=== PATIENT | male | born 1945 | race Caucasian/White ===

== ENCOUNTER 2017-07-31 10:05 | Inpatient (IN) | payer MEDICARE, OTHER ==
[~2017-07-31] VITALS: Ht 182.9 cm; Wt 85.3 kg
[~2017-07-31 10:05] MED LIST: ASPI-630 PO; ATOR20TA PO; CITA20TA5 PO; DONE10TA61 PO; DONE5TAB56 PO; FURO-68 PO; HYDR25TA9 PO; LISI-334 PO; MEMA5TAB PO; METO25TA4 PO; METO50TA6 PO; MULT-245 PO
--- NOTE | 2017-07-31 10:41 | RAD ---
INDICATION: ALOC COMPARISON: 05/20/2016 FINDINGS: Single view of chest obtained. Poststernotomy changes with prominence of cardiac silhouette. Apparent blunting of the left costophrenic angle. No definite focal airspace consolidation or edema. IMPRESSION: No definite focal airspace consolidation. There is again some blunting of the left costophrenic angle. This could be a chronic finding with some focal fat along the pleura in this region when comparing to prior CT of the chest.
[2017-07-31 10:42] LABS: BASO # 0.1 x10^3/uL (0.0-0.2); BASO % 1 % (0-3); EOS # 0.2 x10^3/uL (0.0-0.7); EOS % 2 % (0-3); HEMATOCRIT 38.6 % (39.0-53.0); HEMOGLOBIN 12.9 g/dL (13.0-17.5); LYMPH # 1.6 x10^3/uL (1.0-4.8); LYMPH % 18 % (24-48); MEAN CORPUSCULAR HEMOGLOBIN 31 pg (25-35); MEAN CORPUSCULAR HGB CONC 34 g/dL (31-37); MEAN CORPUSCULAR VOLUME 91 fL (79-100); MONO # 0.8 x10^3/uL (0.0-1.1); MONO % 9 % (0-9); NEUT # 6.6 x10^3uL (1.8-7.7); NEUT % 71 % (31-73); PLATELET COUNT 176 x10^3/uL (140-400); RED BLOOD COUNT 4.23 x10^6/uL (4.30-5.70); RED CELL DISTRIBUTION WIDTH 14.1 % (11.5-14.5); WHITE BLOOD COUNT 9.3 x10^3/uL (4.0-11.0)
--- NOTE | 2017-07-31 10:59 | EKG ---
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
[2017-07-31] MEDS ORDERED: IV NORMAL SALINE 1,000ML 1,000 ML IV ONE (11:00)
[2017-07-31 11:01] LABS: ALBUMIN 2.8 g/dL (3.4-5.0); ALBUMIN/GLOBULIN RATIO 0.8 (1.0-1.7); CALCIUM 8.9 mg/dL (8.5-10.1); CREATININE 0.9 mg/dL (0.7-1.3); GFR 82.9; POTASSIUM 3.8 mmol/L (3.5-5.1); TOTAL BILIRUBIN 0.6 mg/dL (0.2-1.0); TOTAL PROTEIN 6.2 g/dL (6.4-8.2)
[2017-07-31] MEDS ORDERED: cefTRIAXone IV Push 1 GM VIAL. IVP ONE (11:15)
--- NOTE | 2017-07-31 11:29 | RAD ---
INDICATION: ALOC COMPARISON: 05/20/2016 TECHNIQUE: Axial CT images obtained through the head and cervical spine without intravenous contrast. FINDINGS: Head: No intracranial hemorrhage. No midline shift. Basal cisterns patents. Ventricles and sulci are globally prominent. Jerome white differentiation is maintained without evidence of acute ischemia to large vessel territory. No acute osseous abnormality. Orbits and paranasal sinuses unremarkable. Scattered foci of low attenuation within the white matter. Cervical spine: Degenerative changes throughout the cervical spine with osteophyte formation as well as uncovertebral hypertrophy. Mild retrolisthesis of C5 on C6. No definite acute fracture or dislocation. Subcentimeter sclerotic focus C2 vertebral body. Most commonly bone island unless the patient has history of neoplasm. IMPRESSION: 1. No acute intracranial hemorrhage. 2. Scattered regions of low attenuation within the white matter. Non-specific in nature but frequently secondary to chronic small vessel ischemic disease. If there is clinical concern for acute etiology MRI could better assess for acuity. 3. Prominence of ventricles and sulci which is frequently secondary to age related volume loss. 4. Degenerative changes of cervical spine without definite acute fracture or dislocation. PQRS Compliance Statement: One or more of the following individualized dose reduction techniques were utilized for this examination: 1. Automated exposure control 2. Adjustment of the mA and/or kV according to patient size 3. Use of iterative reconstruction technique
[2017-07-31] MEDS ORDERED: TETANUS AND DIPHTHERIA TOX/PF 0.5 ML VIAL. VAX IM ONE (11:30)
--- NOTE | 2017-07-31 11:58 | PHYS DOC ---
Past History Past Medical History: Dementia, High Cholesterol, Heart Disease Past Surgical History: Other Alcohol Use: None Drug Use: None Adult General Chief Complaint Chief Complaint: HYPOTENSION HPI HPI 72-year-old male patient brought in by EMS because of syncope. Patient was found on the floor of kitchen by his and son without seizure activity. Patient's son states he was unresponsive for couple minutes and was confused for several minutes and not acting like his normal now. Family member states he did not have appetite this morning. Patient complaining of diarrhea but unable to tell how many times he had diarrhea. Patient has history of dementia and denies any problem at this time except for diarrhea. Patient had loose stool in his pants at arrival to ER. EMS reported that has blood pressure of 70s over 40s and heart rate of 20s with a standing up and sitting up position that improved with supine position. Patient did not have hypotension on arrival to ER and his heart rate was high 40s. Review of Systems Review of Systems Constitutional: Denies fever or chills [] Eyes: Denies change in visual acuity, redness, or eye pain [] HENT: Denies nasal congestion or sore throat [] Respiratory: Denies cough or shortness of breath [] Cardiovascular: No additional information not addressed in HPI [] GI: Denies abdominal pain, nausea, vomiting, reports diarrhea [] : Denies dysuria or hematuria [] Musculoskeletal: Denies back pain or joint pain [] Integument: Denies rash or skin lesions [] Neurologic: Denies headache, focal weakness or sensory changes [] Endocrine: Denies polyuria or polydipsia [] All other systems were reviewed and found to be within normal limits, except as documented in this note. Current Medications Current Medications Current Medications Medications (Trade) Dose Ordered Sig/Bam Start Time Stop Time Status Last Admin Dose Admin Ceftriaxone Sodium 1 gm/ Sodium Chloride 50 ml @ 100 mls/hr 1X ONCE 07/31/17 11:00 07/31/17 11:29 UNV Ceftriaxone Sodium (Rocephin) 1 gm 1X ONCE 07/31/17 11:15 07/31/17 11:16 DC Sodium Chloride 1,000 ml @ 1,000 mls/hr 1X ONCE 07/31/17 11:00 07/31/17 11:59 Tetanus/ Diphtheria Toxoids Adsorbed (Tenivac Vial) 0.5 ml ONCE ONCE 07/31/17 11:30 1/5/18 11:31 DC Allergies Allergies Allergies Coded Allergies Type Severity Reaction Last Updated Verified meperidine Allergy Unknown 07/31/17 Yes propoxyphene Allergy Unknown 02/26/16 Yes Physical Exam Physical Exam Constitutional: Mild distress, non-toxic appearance, afebrile. [] HENT: Normocephalic, atraumatic, bilateral external ears normal, oropharynx moist, no oral exudates, nose normal. [] Eyes: PERRLA, EOMI, conjunctiva normal, no discharge. [] Neck: Normal range of motion, no tenderness, supple, no stridor. [] Cardiovascular:Heart rate regular rhythm, no murmur [] Lungs & Thorax: Bilateral breath sounds clear to auscultation [] Abdomen: Bowel sounds normal, soft, no tenderness, no masses, no pulsatile masses. [] Skin: Warm, dry, no erythema, no rash. [] Back: No tenderness, no CVA tenderness. [] Extremities: No tenderness, no cyanosis, no clubbing, ROM intact, no edema, Right elbow skin tear, left forearm small abrasion. [] Neurologic: Alert and oriented X 2, normal motor function, normal sensory function, no focal deficits noted, mildly confused. [] Psychologic: Affect normal, judgement normal, mood normal. [] Current Patient Data Vital Signs Vital Signs Date Time Temp Pulse Resp B/P (MAP) Pulse Ox O2 Delivery O2 Flow Rate FiO2 07/31/17 10:05 97.7 48 16 95 Room Air Lab Results Laboratory Tests Test 07/31/17 10:20 White Blood Count 9.3 x10^3/uL (4.0-11.0) Red Blood Count 4.23 x10^6/uL (4.30-5.70) L Hemoglobin 12.9 g/dL (13.0-17.5) L Hematocrit 38.6 % (39.0-53.0) L Mean Corpuscular Volume 91 fL (79-100) Mean Corpuscular Hemoglobin 31 pg (25-35) Mean Corpuscular Hemoglobin Concent 34 g/dL (31-37) Red Cell Distribution Width 14.1 % (11.5-14.5) Platelet Count 176 x10^3/uL (140-400) Neutrophils (%) (Auto) 71 % (31-73) Lymphocytes (%) (Auto) 18 % (24-48) L Monocytes (%) (Auto) 9 % (0-9) Eosinophils (%) (Auto) 2 % (0-3) Basophils (%) (Auto) 1 % (0-3) Neutrophils # (Auto) 6.6 x10^3uL (1.8-7.7) Lymphocytes # (Auto) 1.6 x10^3/uL (1.0-4.8) Monocytes # (Auto) 0.8 x10^3/uL (0.0-1.1) Eosinophils # (Auto) 0.2 x10^3/uL (0.0-0.7) Basophils # (Auto) 0.1 x10^3/uL (0.0-0.2) Prothrombin Time 10.8 SEC (9.4-11.4) Prothrombin Time INR 1.1 (0.9-1.1) PTT 24 SEC (23-33) Sodium Level 147 mmol/L (136-145) H Potassium Level 3.8 mmol/L (3.5-5.1) Chloride Level 110 mmol/L (98-107) H Carbon Dioxide Level 29 mmol/L (21-32) Anion Gap 8 (6-14) Blood Urea Nitrogen 18 mg/dL (8-26) Creatinine 0.9 mg/dL (0.7-1.3) Estimated GFR (Cockcroft-Gault) 82.9 BUN/Creatinine Ratio 20 (6-20) Glucose Level 103 mg/dL (70-99) H Lactic Acid Level 2.5 mmol/L (0.4-2.0) H Calcium Level 8.9 mg/dL (8.5-10.1) Magnesium Level 2.0 mg/dL (1.8-2.4) Total Bilirubin 0.6 mg/dL (0.2-1.0) Aspartate Amino Transferase (AST) 15 U/L (15-37) Alanine Aminotransferase (ALT) 23 U/L (16-63) Alkaline Phosphatase 113 U/L (46-116) Creatine Kinase 99 U/L (39-308) Creatine Kinase MB (Mass) 2.9 ng/mL (0.0-3.6) Creatine Kinase MB Relative Index 2.9 % (0-4) Troponin I Quantitative 0.030 ng/mL (0-0.055) JP-Sfm-R-Type Natriuretic Peptide 488 pg/mL (0-124) H Total Protein 6.2 g/dL (6.4-8.2) L Albumin 2.8 g/dL (3.4-5.0) L Albumin/Globulin Ratio 0.8 (1.0-1.7) L EKG EKG EKG at 1017 showed sinus bradycardia at rate of 49, left axis deviation, left atrial abnormality, left bundle branch block, poor R-wave progress in anterior leads, PTT EKG at 1117 showed sinus bradycardia at rate of 51, left axis deviation, nonspecific intraventricular block, Q wave in anterior leads[] Radiology/Procedures Radiology/Procedures CT of head and chest x-ray did not show acute problem Course & Med Decision Making Course & Med Decision Making Pertinent Labs and Imaging studies reviewed. (See chart for details) Evaluation of patient in ER showed 72-year-old male patient brought by EMS from his home because of the fall after syncopal episode. Patient did not remember the event. Patient had hypotension and bradycardia EMS arrival that gradually improved and did not have hypotension in ER and his bradycardia improved with IV fluid. Patient had few episodes of diarrhea and looked he had a vasovagal syncopal episode and fall. Labs and ct of head did not show acute finding. Plan to admit for observation. Dr Molina accepted admission at 1152. Dragon Disclaimer Dragon Disclaimer This electronic medical record was generated, in whole or in part, using a voice recognition dictation system. Departure Departure: Impression: Primary Impression: Syncope and collapse Additional Impressions: Fall at home Abrasion of upper extremity Bradycardia Diarrhea Dementia Disposition: 09 ADMITTED INPATIENT (At 1152) Admitting Physician: Keven Molina Condition: IMPROVED Referrals: KEVEN MOLINA MD (PCP) Problem Qualifiers RIP QUACH MD Jul 31, 2017 11:58
[2017-07-31 14:45] VITALS: BP 158/81
[2017-07-31] MEDS ORDERED: IV NORMAL SALINE 1,000ML 1,000 ML IV SCH (18:30)
[2017-07-31 19:51] VITALS: BP 157/93
[2017-07-31] MEDS ORDERED: LISI-334 PO (20:16)
[2017-07-31] MEDS ORDERED: DONEPEZIL HCL 10 MG TABLET PO SCH (21:00)
[2017-07-31] MEDS ORDERED: METOPROLOL TART IMMED RELEASE 25 MG TABLET PO SCH (21:00)
[2017-07-31 21:29] LABS: BILIRUBIN,URINE NEG (NEG); CLARITY,URINE CLEAR; COLOR,URINE YELLOW; GLUCOSE,URINE NEG (NEG)
[2017-07-31 21:30] LABS: NITRITE,URINE NEG (NEG); UROBILINOGEN,URINE 1 mg/dL (0.2 mg/dL)
[2017-07-31 21:31] LABS: BACTERIA,URINE 0 /HPF (0-FEW); SQUAMOUS EPITHELIAL CELL,UR FEW /LPF; WBC,URINE OCC /HPF (0-4)
[2017-07-31 21:36] LABS: HYALINE CASTS, URINE FEW /HPF
[2017-07-31 23:37] VITALS: BP 142/82
[2017-08-01 05:37] VITALS: BP 167/84
[2017-08-01] MEDS ORDERED: HEPARIN PF for SUB-Q USE 5,000 UNIT/0.5 ML VIAL. SQ SCH (06:00)
[2017-08-01] MEDS ORDERED: IOHEXOL 300 MG/ML 75 ML VIAL. IV ONE (07:15)
[2017-08-01] MEDS ORDERED: CONTRAST GIVEN MC PRN (07:15)
[2017-08-01 08:24] LABS: BASO % 1 % (0-3); EOS # 0.1 x10^3/uL (0.0-0.7); EOS % 2 % (0-3); HEMATOCRIT 40.4 % (39.0-53.0); HEMOGLOBIN 13.5 g/dL (13.0-17.5); LYMPH # 1.3 x10^3/uL (1.0-4.8); LYMPH % 18 % (24-48); MEAN CORPUSCULAR HEMOGLOBIN 31 pg (25-35); MEAN CORPUSCULAR HGB CONC 33 g/dL (31-37); MEAN CORPUSCULAR VOLUME 92 fL (79-100); MONO # 0.5 x10^3/uL (0.0-1.1); MONO % 7 % (0-9); NEUT # 5.5 x10^3uL (1.8-7.7); NEUT % 73 % (31-73); PLATELET COUNT 171 x10^3/uL (140-400); RED BLOOD COUNT 4.41 x10^6/uL (4.30-5.70); RED CELL DISTRIBUTION WIDTH 14.2 % (11.5-14.5); WHITE BLOOD COUNT 7.6 x10^3/uL (4.0-11.0)
[2017-08-01 08:26] LABS: CALCIUM 8.6 mg/dL (8.5-10.1); CREATININE 0.8 mg/dL (0.7-1.3); POTASSIUM 3.4 mmol/L (3.5-5.1)
[2017-08-01 08:52] VITALS: BP 162/89
[2017-08-01 08:53] VITALS: BP_SYST 153; BP_SYST 155; BP_DIAS 77; BP_DIAS 95
[2017-08-01] MEDS ORDERED: MEMANTINE 5 MG TABLET. PO SCH (09:00)
[2017-08-01] MEDS ORDERED: CITALOPRAM 20 MG TABLET. PO SCH ×2 (09:00)
[2017-08-01] MEDS ORDERED: ATORVASTATIN CALCIUM 20 MG TABLET PO SCH (09:00)
[2017-08-01] MEDS ORDERED: ASPIRIN 81 MG TAB.CHEW PO SCH (09:00)
[2017-08-01] MEDS ORDERED: MEMANTINE 10 MG TABLET. PO SCH (09:00)
[2017-08-01] MEDS ORDERED: PNEUMOC CONJ VACC 23-VALENT 0.5 ML VIAL. VAX IM ONE (09:00)
--- NOTE | 2017-08-01 10:15 | RAD ---
CT chest with contrast: Clinical history: Elevated d-dimer and syncope. Axial helical images of the chest were obtained after the administration of 75 cc of Omni 300 and timed appropriately for a pulmonary arterial study. Multiplanar reconstruction was performed on a work station for a CT pulmonary angiogram of the chest with contrast. Comparison: May 20, 2016 There are no filling defects to suggest pulmonary embolism. The ascending thoracic aorta is mildly dilated measuring 4.6 cm in diameter. There are median sternotomy wires. Linear opacities in the lung bases are likely discoid atelectasis. There is no mediastinal or hilar lymphadenopathy. Impression: 1. No evidence of pulmonary embolism. 2. Mildly dilated ascending thoracic aorta is stable. 3. No acute findings.
[2017-08-01 10:38] VITALS: BP 153/77
[2017-08-01 10:50] VITALS: BP 146/81
--- NOTE | 2017-08-01 11:35 | HP ---
ADMIT DATE: 07/31/2017 HISTORY OF PRESENT ILLNESS: The patient brought to the Emergency Room yesterday, ____ by his without seizure activity, no loss of stool or whatever the patient has severe dementia but apparently was confused for several minutes, not acting like his normal self. He only remembered that he had no appetite on the morning of admission and was complaining also of some diarrhea. However, the patient has difficulty communicating whether he does have severe dementia, Alzheimer's. The patient's heart rate was noted to be in the 40s. He was admitted for syncope. Further evaluation is indicated. PAST MEDICAL HISTORY: Includes that of dementia, valvular replacement aortic valve in 2002, hypercholesterolemia, joint replacement, left knee replacement, influenza vaccine. FAMILY HISTORY: Cardiovascular disease, cancer disease in the parents, otherwise unremarkable. ALLERGIES: MEPERIDINE and DARVOCET ____. SOCIAL HISTORY: The patient unable to give any history, but no history of smoking, alcohol or drug use. HOME MEDICATIONS: Aspirin, Celexa 40, lisinopril 20, Namenda 10, metoprolol 12.5 b.i.d., multivitamin daily. REVIEW OF SYSTEMS: As noted, unable to get any history from the patient as he is pretty much has severe dementia, Alzheimer's and he does not answer or answers yes to everything. PHYSICAL EXAMINATION: VITAL SIGNS: Blood pressure 155/95 in this white male, morbidly obese. Respiratory rate 16, pulse 70, afebrile. Initially, his pulse was as noted 48. HEENT: The patient's head was atraumatic and normocephalic. EYES: PERRLA without jaundice. Mouth and throat: Poor dentition. NECK: Supple, without JVD, carotid bruit or thyromegaly. LUNGS: Diminished throughout. Poor movement of air. CARDIOVASCULAR: Regular sinus rhythm. S1 and S2 without murmur, rub, thrill, or extra heart sounds. ABDOMEN: Soft, protuberant, nontender. No rebound or guarding. Positive bowel sounds. No hepatosplenomegaly was noted. EXTREMITIES: No clubbing, cyanosis, or edema. NEUROLOGIC: The patient alert, but as noted unable to answer any questions. LABORATORY DATA: Potassium slightly low 3.4. Lactic acid was elevated, although it has come down in normal range. He did have a D-dimer 1.76. CTA pending for further evaluation there. IMPRESSION: Otherwise, syncope, bradycardia, change in mental status, hypokalemia, elevated D-dimer, Alzheimer's disease, morbid obesity. PLAN: Continue to monitor carefully, make further evaluation once further results are brought back of the CTA. VENICE JONES MD DR: DAISY/ralph JOB#: [id number] / [id number]
[2017-08-01] MEDS ORDERED: QUIN40TA PO (14:02)
== END 2017-08-01 13:52 | disposition home or self-care (01) | DRG 308 ==
LOC: ER 10:05 → 1 SOUTH 11:55 → OBSVTOIN 20:28
PROVIDERS: ADMIT Family Medicine; ATTEND Family Medicine
DX: R00.1 Bradycardia, unspecified (principal); G93.41 Metabolic encephalopathy; E44.0 Moderate protein-calorie malnutrition; G30.9 Alzheimer's disease, unspecified; F02.80 Dementia in other diseases classified elsewhere, unspecified severity, without behavioral disturbance, psychotic disturbance, mood disturbance, and anxiety; Z95.2 Presence of prosthetic heart valve; E66.01 Morbid (severe) obesity due to excess calories; R19.7 Diarrhea, unspecified; W18.39XA Other fall on same level, initial encounter; E87.6 Hypokalemia; Z68.25 Body mass index [BMI] 25.0-25.9, adult; E78.00 Pure hypercholesterolemia, unspecified; S50.812A Abrasion of left forearm, initial encounter; Z96.652 Presence of left artificial knee joint; R79.1 Abnormal coagulation profile; Z82.49 Family history of ischemic heart disease and other diseases of the circulatory system; Z88.8 Allergy status to other drugs, medicaments and biological substances; Z80.9 Family history of malignant neoplasm, unspecified; Y93.89 Activity, other specified; Y92.099 Unspecified place in other non-institutional residence as the place of occurrence of the external cause
CPT/HCPCS: 36415; 70450; 71045; 71275; 72125; 80048; 80053; 81001; 82553; 82607; 83605; 83735; 83880; 84443; 84484; 85025; 85379; 85610; 85730; 87040; 90471; 90714; 90732; 93005; 96361; 96374; G0378; G0379; J0696; Q9967; 99285-25; J7030

== ENCOUNTER 2017-11-12 17:55 | Observation (INO) | payer OTHER ==
[~2017-11-12] VITALS: Ht 175.3 cm; Wt 85.3 kg
[~2017-11-12 17:55] MED LIST changes: +QUIN40TA PO
--- NOTE | 2017-11-12 18:13 | PHYS DOC ---
Past History Past Medical History: Dementia, High Cholesterol, Heart Disease Past Surgical History: Other Alcohol Use: None Drug Use: None Adult General HPI HPI 72-year-old male with a history of high blood pressure high cholesterol known coronary artery disease with a prior coronary artery bypass graft and recently evolving some mild diabetes which is diet controlled currently. Over the past year or more patient has evolved her significant dementia per . They were at [facility] today and he became less responsive than his typical for him. She helped him sit down and then EMS was called. There was a suspicion that his blood glucose could be low so he was given some applesauce and some other food, when EMS arrived his glucose was around the 100. Patient has not been sick recently as a has no specific complaints no headache no cough no chest pain or shortness of breath. Denies abdominal pain. Normal bowel bladder habits. confirms this history and review of systems Review of Systems Review of Systems Constitutional: Denies fever or chills [] Eyes: Denies change in visual acuity, redness, or eye pain [] HENT: Denies nasal congestion or sore throat [] Respiratory: Denies cough or shortness of breath [] Cardiovascular: No additional information not addressed in HPI [] GI: Denies abdominal pain, nausea, vomiting, bloody stools or diarrhea [] : Denies dysuria or hematuria [] Musculoskeletal: Denies back pain or joint pain [] Integument: Denies rash or skin lesions [] Neurologic: Denies headache, focal weakness or sensory changes [] Endocrine: Denies polyuria or polydipsia [] All other systems were reviewed and found to be within normal limits, except as documented in this note. Current Medications Current Medications Current Medications Medications (Trade) Dose Ordered Sig/Bam Start Time Stop Time Status Last Admin Dose Admin Dextrose/Sodium Chloride 1,000 ml @ 150 mls/hr 1X ONCE 11/12/17 18:15 11/13/17 00:54 Allergies Allergies Allergies Coded Allergies Type Severity Reaction Last Updated Verified meperidine Allergy Unknown 07/31/17 Yes propoxyphene Allergy Unknown 02/26/16 Yes Physical Exam Physical Exam Chronically weak appearing 72-year-old male with a very slow speech and disorientation consistent with his advanced dementia and unchanged from his recent baseline per . Mucous membranes are mildly dry. Pupils are reactive bilaterally. Supple neck clear lungs regular rate and rhythm without tachycardia. Benign abdomen with no focal tenderness no mass or megaly no CVA tenderness. Normal extremities. Patient has significant generalized weakness 4 minus out of 5 but there is no asymmetry or focal deficits Constitutional: no acute distress, non-toxic appearance. [] HENT: Normocephalic, atraumatic, bilateral external ears normal, oropharynx mildly dry, no oral exudates, nose normal. [] Eyes: PERRLA, EOMI, conjunctiva normal, no discharge. [] Neck: Normal range of motion, no tenderness, supple, no stridor. [] Cardiovascular:Heart rate regular rhythm, no murmur [] Lungs & Thorax: Bilateral breath sounds clear to auscultation [] Abdomen: Bowel sounds normal, soft, no tenderness, no masses, no pulsatile masses. [] Skin: Warm, dry, no erythema, no rash. [] Back: No tenderness, no CVA tenderness. [] Extremities: No tenderness, no cyanosis, no clubbing, ROM intact, no edema. [] Neurologic: Alert and oriented 2 not to date, normal motor function except significant generalized weakness as above., normal sensory function, no focal deficits noted. [] Psychologic: Patient with very flat affect which is why says is his chronic baseline. EKG EKG Normal sinus rhythm at 68 left axis deviation and nonspecific intraventricular block with long QRS. Nonspecific ST and T-wave findings no STEMI interpreted by me[] Radiology/Procedures Radiology/Procedures [] Course & Med Decision Making Course & Med Decision Making Pertinent Labs and Imaging studies reviewed. (See chart for details) Signs and symptoms consistent with near syncope in this elderly gentleman with advanced dementia. Clinically he appears mildly dehydrated. Nonfocal neurologic exam with significant generalized weakness. Full workup pending. Anticipate telemetry admission for further evaluation of near syncope with monitoring to rule out arrhythmia. [] Dragon Disclaimer Dragon Disclaimer This electronic medical record was generated, in whole or in part, using a voice recognition dictation system. Departure Departure: Impression: Primary Impression: Near syncope Additional Impressions: Dehydration Generalized weakness Hypoglycemia Disposition: ADMITTED INPATIENT Admitting Physician: Keven Molina Condition: IMPROVED Referrals: KEVEN MOLINA MD (PCP) Problem Qualifiers JYOTSNA COVINGTON MD Nov 12, 2017 18:13
[2017-11-12] MEDS ORDERED: IV DEXTROSE 5% - 0.9 % NACL 1,000 ML IV ONE (18:15)
[2017-11-12] MEDS ORDERED: IV DEXTROSE 5% - 0.9 % NACL 500 ML IV ONE ×2 (18:15→19:00)
--- NOTE | 2017-11-12 18:20 | EKG ---
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1945 Requested By: JYOTSNA COVINGTON Order Number: [id number] Reading MD: Measurements Intervals [place] Rate: 68 P: -154 MD: 104 QRS: -54 QRSD: 178 T: 133 QT: 478 QTc: 509 Interpretive Statements SINUS RHYTHM ABNORMAL LEFT AXIS DEVIATION NON SPECIFIC INTRAVENTRICULAR BLOCK QRS(T) CONTOUR ABNORMALITY CONSISTENT WITH ANTEROSEPTAL INFARCT POSSIBLY RECENT ABNORMAL ECG RI6.01 Compared to ECG 07/31/2017 10:11:37 Left-axis deviation now present Myocardial infarct finding now present Sinus bradycardia no longer present Left bundle-branch block no longer present Poor R-wave progression no longer present
[2017-11-12] MEDS ORDERED: IV NORMAL SALINE 1,000ML 1,000 ML IV ONE (19:00)
[2017-11-12 19:06] LABS: BASO % 1 % (0-3); EOS # 0.2 x10^3/uL (0.0-0.7); EOS % 4 % (0-3); HEMATOCRIT 39.8 % (39.0-53.0); HEMOGLOBIN 13.3 g/dL (13.0-17.5); LYMPH # 1.3 x10^3/uL (1.0-4.8); LYMPH % 27 % (24-48); MEAN CORPUSCULAR HEMOGLOBIN 31 pg (25-35); MEAN CORPUSCULAR HGB CONC 34 g/dL (31-37); MEAN CORPUSCULAR VOLUME 92 fL (79-100); MONO # 0.3 x10^3/uL (0.0-1.1); MONO % 7 % (0-9); NEUT % 62 % (31-73); PLATELET COUNT 149 x10^3/uL (140-400); RED BLOOD COUNT 4.32 x10^6/uL (4.30-5.70); RED CELL DISTRIBUTION WIDTH 14.1 % (11.5-14.5); WHITE BLOOD COUNT 4.8 x10^3/uL (4.0-11.0)
[2017-11-12 19:21] LABS: ALBUMIN 2.9 g/dL (3.4-5.0); ALBUMIN/GLOBULIN RATIO 0.8 (1.0-1.7); CALCIUM 9.2 mg/dL (8.5-10.1); CREATININE 0.9 mg/dL (0.7-1.3); GFR 82.9; POTASSIUM 3.3 mmol/L (3.5-5.1); TOTAL BILIRUBIN 0.3 mg/dL (0.2-1.0); TOTAL PROTEIN 6.4 g/dL (6.4-8.2)
[2017-11-12] MEDS ORDERED: ONDANSETRON PF 4 MG/2 ML VIAL. IV PRN (21:45)
[2017-11-12] MEDS ORDERED: LISI-334 PO (21:50)
[2017-11-12 22:41] VITALS: BP 159/79
[2017-11-12] MEDS: IV NORMAL SALINE 1,000ML 1,000 ML IV SCH (23:10)
[2017-11-12 23:11] LABS: BACTERIA,URINE 0 /HPF (0-FEW); BILIRUBIN,URINE NEG (NEG); CLARITY,URINE CLEAR; COLOR,URINE YELLOW; GLUCOSE,URINE NEG (NEG); NITRITE,URINE NEG (NEG); RBC,URINE RARE /HPF (0-2); SQUAMOUS EPITHELIAL CELL,UR OCC /LPF; UROBILINOGEN,URINE 0.2 mg/dL (0.2 mg/dL); WBC,URINE RARE /HPF (0-4)
[2017-11-13] MEDS: IV NORMAL SALINE 1,000ML 1,000 ML IV SCH ×2 (05:47→13:45)
[2017-11-13 06:07] VITALS: BP 156/81
[2017-11-13 06:49] LABS: CALCIUM 8.5 mg/dL (8.5-10.1); CREATININE 0.8 mg/dL (0.7-1.3); POTASSIUM 3.3 mmol/L (3.5-5.1)
[2017-11-13 06:52] LABS: BASO % 1 % (0-3); EOS # 0.2 x10^3/uL (0.0-0.7); EOS % 3 % (0-3); HEMOGLOBIN 11.8 g/dL (13.0-17.5); LYMPH # 1.8 x10^3/uL (1.0-4.8); LYMPH % 30 % (24-48); MEAN CORPUSCULAR HEMOGLOBIN 31 pg (25-35); MEAN CORPUSCULAR HGB CONC 34 g/dL (31-37); MEAN CORPUSCULAR VOLUME 92 fL (79-100); MONO # 0.5 x10^3/uL (0.0-1.1); MONO % 9 % (0-9); NEUT # 3.5 x10^3uL (1.8-7.7); NEUT % 58 % (31-73); PLATELET COUNT 130 x10^3/uL (140-400); RED BLOOD COUNT 3.79 x10^6/uL (4.30-5.70); RED CELL DISTRIBUTION WIDTH 14.3 % (11.5-14.5); WHITE BLOOD COUNT 6.2 x10^3/uL (4.0-11.0)
[2017-11-13] MEDS ORDERED: POTASSIUM CHLORIDE 20 MEQ TABLET.ER. PO ONE (07:30)
[2017-11-13] MEDS ORDERED: LISINOPRIL 20 MG TABLET PO SCH (09:00)
[2017-11-13] MEDS ORDERED: CITALOPRAM 20 MG TABLET. PO SCH (09:00)
[2017-11-13] MEDS ORDERED: MEMANTINE 10 MG TABLET. PO SCH (09:00)
[2017-11-13] MEDS ORDERED: ASPIRIN 81 MG TAB.CHEW PO SCH (09:00)
--- NOTE | 2017-11-13 09:02 | RAD ---
History: Acute mental status change AP view the chest was obtained at 1839 hours. Comparison: July 31, 2017 Median sternotomy wires and artificial valve are again seen. The heart is borderline enlarged. The pulmonary vasculature is normal. There is blunting of the left costophrenic angle. Impression: Mild left effusion with adjacent infiltrate. Stable appearance the chest.
[2017-11-13 10:44] VITALS: BP 152/83
[2017-11-13] MEDS ORDERED: POTA8TAB PO (12:49)
[2017-11-13] MEDS ORDERED: LEVO500T59 PO (12:49)
[2017-11-13] MEDS ORDERED: levoFLOXacin 500 MG TABLET PO SCH (13:00)
--- NOTE | 2017-11-13 13:13 | HP ---
ADMIT DATE: 11/12/2017 HISTORY OF PRESENT ILLNESS: A 72-year-old gentleman with history of severe dementia, Alzheimer type, came in through the Emergency Room, brought in by family members. Apparently, he was at [facility] when he became unresponsive or very less responsive, had to be sat down quietly where EMS was brought in. The patient's blood sugar was found to be on the low side came back up into 100. The patient was admitted for evaluation and observation. The patient is a poor historian. The patient has marked limited gait, almost a parkinsonian type affect, probably follow up also with the maxillofacial surgeon. The patient also was noted to have mild left effusion with adjacent infiltrate, although they also note stable appearance that is somewhat concerning as well. The patient's labs show slightly low potassium and albumin decreased as well. The patient was admitted for further evaluation and treatment. PAST MEDICAL HISTORY: That of dementia, valve replacement, aortic valve in 2002, hypercholesterolemia, hypertension, joint replacement, left knee replacement, diabetes, depression, and influenza. Pneumococcal vaccines up to date 1166-2996 respectively. FAMILY HISTORY: Mother with heart disease. Father with some form of cancer. ALLERGIES: MEPERIDINE and PROPOXYPHENE, which is no longer available unfortunately. SOCIAL HISTORY: The patient denies smoking, alcohol, or drug use. The patient is a full code. REVIEW OF SYSTEMS: The patient really not able to give much of history and continues to be monitored carefully. PHYSICAL EXAMINATION: GENERAL: This is an elderly white male, looking older than stated age, very limited range of motion, very stiff. VITAL SIGNS: Blood pressure 142/87, respiratory rate 18, pulse 74, afebrile. HEENT: The patient's head was atraumatic, normocephalic. Eyes: PERRLA without jaundice. Mouth and throat: Poor dentition. NECK: Supple, without JVD, carotid bruit, or thyromegaly. LUNGS: Diminished. Poor movement of air. CARDIOVASCULAR: Regular sinus rhythm, S1, S2. ABDOMEN: Soft, nontender, protuberant. EXTREMITIES: No clubbing, cyanosis, nor edema. NEUROLOGIC: The patient was alert, but not able really to verbalize much at all. He has severe dementia with Alzheimer type. IMPRESSION AND PLAN: In any case, the patient was admitted for further evaluation including that of a near syncope, hypokalemia, possible pneumonitis, pleural effusion, dementia, Alzheimer type; hypertension, moderate to severe protein malnutrition. The patient will be admitted, placed on IV fluids. Further evaluation as indicated. VENICE JONES MD DR: DAISY/ralph JOB#: [id number] / [id number]
[2017-11-14] MEDS ORDERED: POTASSIUM CHLORIDE 8 MEQ TABLET.ER. PO SCH (08:00)
== END 2017-11-13 14:00 | disposition home health service (06) ==
LOC: ER 17:55 → INTOOBSV 21:30 → 1 SOUTH 21:30
PROVIDERS: ADMIT Family Medicine; ATTEND Family Medicine
DX: R55 Syncope and collapse (principal); E87.6 Hypokalemia; J90 Pleural effusion, not elsewhere classified; F03.90 Unspecified dementia, unspecified severity, without behavioral disturbance, psychotic disturbance, mood disturbance, and anxiety; I10 Essential (primary) hypertension; E11.649 Type 2 diabetes mellitus with hypoglycemia without coma; E78.00 Pure hypercholesterolemia, unspecified; I25.10 Atherosclerotic heart disease of native coronary artery without angina pectoris; Z82.49 Family history of ischemic heart disease and other diseases of the circulatory system; Z95.1 Presence of aortocoronary bypass graft
CPT/HCPCS: 36415; 71045; 80048; 80053; 81001; 82947; 84443; 84484; 85025; 93005; 96360; 96361; 97161; 97166; 99285; G0378; J7042; G0379; J7030

== ENCOUNTER 2018-01-18 10:53 | Inpatient (IN) | payer OTHER ==
[~2018-01-18] VITALS: Ht 172.7 cm; Wt 83.2 kg
[~2018-01-18 10:53] MED LIST changes: -CITA20TA5 PO; +CITA20TA6 PO; +LEVO500T59 PO; +POTA8TAB PO
[2018-01-18 14:03] VITALS: BP 145/88
[2018-01-18] MEDS ORDERED: DOXY100C14 PO (14:47)
[2018-01-18] MEDS ORDERED: KLOR CON PO (14:47)
[2018-01-18] MEDS ORDERED: ONDANSETRON PF 4 MG/2 ML VIAL. IV PRN (15:00)
[2018-01-18] MEDS ORDERED: ENOXAPARIN 40 MG/0.4 ML SYRINGE. SQ SCH (15:00)
[2018-01-18] MEDS ORDERED: VANCOMYCIN 2 GM in IV NORMAL SALINE 500ML 500 ML IV ONE (15:00)
[2018-01-18 15:07] LABS: BASO % 0 % (0-3); EOS # 0.1 x10^3/uL (0.0-0.7); EOS % 1 % (0-3); HEMATOCRIT 33.5 % (39.0-53.0); HEMOGLOBIN 11.2 g/dL (13.0-17.5); LYMPH # 1.2 x10^3/uL (1.0-4.8); LYMPH % 13 % (24-48); MEAN CORPUSCULAR HEMOGLOBIN 31 pg (25-35); MEAN CORPUSCULAR HGB CONC 34 g/dL (31-37); MEAN CORPUSCULAR VOLUME 91 fL (79-100); MONO % 10 % (0-9); NEUT # 7.3 x10^3uL (1.8-7.7); NEUT % 76 % (31-73); PLATELET COUNT 270 x10^3/uL (140-400); RED BLOOD COUNT 3.67 x10^6/uL (4.30-5.70); RED CELL DISTRIBUTION WIDTH 13.7 % (11.5-14.5); WHITE BLOOD COUNT 9.6 x10^3/uL (4.0-11.0)
[2018-01-18 15:08] LABS: ALBUMIN 2.1 g/dL (3.4-5.0); ALBUMIN/GLOBULIN RATIO 0.4 (1.0-1.7); CALCIUM 9.2 mg/dL (8.5-10.1); CREATININE 0.9 mg/dL (0.7-1.3); GFR 82.9; POTASSIUM 3.8 mmol/L (3.5-5.1); TOTAL BILIRUBIN 0.4 mg/dL (0.2-1.0); TOTAL PROTEIN 7.3 g/dL (6.4-8.2)
[2018-01-18] MEDS: VANCOMYCIN PER PHARMACY MC PRN (18:18)
[2018-01-18 21:14] VITALS: BP 129/80
[2018-01-18] MEDS: ENOXAPARIN 40 MG/0.4 ML SYRINGE. SQ SCH (21:22)
[2018-01-18 23:59] VITALS: BP 128/73
--- NOTE | 2018-01-19 00:53 | RAD ---
PORTABLE CHEST 1V Clinical History: [id number] Short of air, weakness Technique: AP view of the chest was obtained at 01/18/2018 9:13 PM. Comparison: November 12, 2017. Findings: The heart is mildly enlarged. Median sternotomy wires are again seen. The pulmonary vasculature is normal. There is blunting of the left costophrenic angle. Impression: Mild left effusion with adjacent infiltrate and mild cardiomegaly. Findings are likely secondary to mild CHF. Electronically signed by: David Vela III, MD (01/19/2018 12:50 AM) [facility]
[2018-01-19 03:08] VITALS: BP 125/67
[2018-01-19] MEDS: VANCOMYCIN 1.25 GM in IV NORMAL SALINE 250ML 250 ML IV SCH ×2 (03:51→16:19)
[2018-01-19 06:07] VITALS: BP 142/79
[2018-01-19 06:23] LABS: BASO % 1 % (0-3); EOS # 0.1 x10^3/uL (0.0-0.7); EOS % 2 % (0-3); HEMATOCRIT 29.2 % (39.0-53.0); HEMOGLOBIN 9.8 g/dL (13.0-17.5); LYMPH # 1.6 x10^3/uL (1.0-4.8); LYMPH % 18 % (24-48); MEAN CORPUSCULAR HEMOGLOBIN 30 pg (25-35); MEAN CORPUSCULAR HGB CONC 34 g/dL (31-37); MEAN CORPUSCULAR VOLUME 90 fL (79-100); MONO % 11 % (0-9); NEUT # 6.3 x10^3uL (1.8-7.7); NEUT % 70 % (31-73); PLATELET COUNT 247 x10^3/uL (140-400); RED BLOOD COUNT 3.23 x10^6/uL (4.30-5.70); RED CELL DISTRIBUTION WIDTH 13.4 % (11.5-14.5)
[2018-01-19 06:34] LABS: CALCIUM 8.8 mg/dL (8.5-10.1); CREATININE 0.8 mg/dL (0.7-1.3); POTASSIUM 3.7 mmol/L (3.5-5.1)
[2018-01-19 11:00] VITALS: BP 144/77
[2018-01-19] MEDS: CITALOPRAM 20 MG TABLET. PO SCH (11:02)
[2018-01-19] MEDS: LISINOPRIL 20 MG TABLET PO SCH (11:02)
[2018-01-19] MEDS: MEMANTINE 10 MG TABLET. PO SCH (11:02)
[2018-01-19] MEDS: MULTIVITAMIN with MINERAL TABLET. PO SCH (11:03)
[2018-01-19] MEDS: POTASSIUM CHLORIDE 8 MEQ TABLET.ER. PO SCH (11:03)
[2018-01-19] MEDS: ASPIRIN 81 MG TAB.CHEW PO SCH (11:03)
[2018-01-19] MEDS: ACETAMINOPHEN 500 MG TABLET PO PRN ×2 (11:05→20:55)
--- NOTE | 2018-01-19 14:02 | HP ---
ADMIT DATE: 01/18/2018 HISTORY OF PRESENT ILLNESS: This 72-year-old male came in from home, apparently recently been treated for an infection in his right foot and right lower leg. The patient otherwise has been not doing well on oral antibiotics. As a result of this, the patient was admitted to the hospital for IV antibiotic therapy and care there. He had a sed rate of greater than 115 and even though his white count was basically unremarkable, he did have a temperature of 99.5. The family noted the patient has severe Alzheimer type. Consequently, he is not in a good condition to give much of a history, most of the history obtained from his . The patient has not done well on oral antibiotics, was admitted to the hospital for further evaluation and treatment. PAST MEDICAL HISTORY: Dementia, Alzheimer type; valve replacement, aortic valve in 2002; hypercholesterolemia and hypertension; joint replacement, left knee replacement; diabetes, depression, influenza. Pneumococcal vaccine and flu vaccines are up-to-date. FAMILY HISTORY: Mother with heart disease. Father with cancer. ALLERGIES: MEPERIDINE AND DARVOCET. SOCIAL HISTORY: The patient denies smoking, alcohol or drug use. REVIEW OF SYSTEMS: The patient really not able to give much of any type of history at all, pretty much has a blank stare. He does have an infected right foot and right lower leg as noted above. HOME MEDICATIONS: He has aspirin 81, Celexa 20, lisinopril 20, Namenda 10 mg b.i.d., multivitamin and Klor-Con 8 mEq. REVIEW OF SYSTEMS: The patient otherwise review of systems is noted, unable to give any history. PHYSICAL EXAMINATION: GENERAL: This is a white male, well developed, well nourished, but very pretty much noncommunicating. VITAL SIGNS: Blood pressure 130/80, respiratory rate 20, pulse 80, temperature 99.5, oxygen saturation 92%. HEENT: The patient's head was atraumatic, normocephalic. Eyes: PERRLA without jaundice. Mouth and throat: Poor dentition. NECK: Supple, without JVD. NEUROLOGIC: The patient otherwise resting fairly comfortably, making fairly good progress over there. LUNGS: Diminished crackles in the bases. CARDIOVASCULAR: Regular sinus rhythm, S1, S2. ABDOMEN: Soft, protuberant, nontender. No rebound or guarding. Positive bowel sounds, no hepatosplenomegaly was noted. EXTREMITIES: No clubbing, cyanosis or edema except for the lower legs that do show +1 pitting edema. Marked erythema to the right big toe over the surface of the right foot and a partial to lower extremity of the right lower leg. Pulses noted distally. NEUROLOGIC: Baseline for him. He is alert, but was markedly confused, disoriented, not much in the way of speech. LABORATORY DATA: As noted. Sed rate was at 115. Otherwise, the CBC, chemistries were basically normal except for an elevated BNP of 4700. The patient's albumin low at 2.1. IMPRESSION: Cellulitis to the right lower leg, right foot as well as lymphangitis, elevated BNP for possible congestive heart failure, moderate to severe protein malnutrition. PLAN: Continue on IV vancomycin, IV Lasix and make further evaluation on him as indicated. VENICE JONES MD DR: DAISY/ralph JOB#: [id number] / [id number]
[2018-01-19] MEDS: FUROSEMIDE 20 MG/2 ML VIAL IVP SCH (16:19)
[2018-01-19 17:35] VITALS: BP 138/73
[2018-01-19 19:22] VITALS: BP 116/68
[2018-01-19] MEDS: LACTOBACILLUS RHAMNOSUS GG 1 CAPSULE. PO SCH (20:54)
[2018-01-19] MEDS: ENOXAPARIN 40 MG/0.4 ML SYRINGE. SQ SCH (20:55)
[2018-01-19] MEDS: DOXYCYCLINE HYCLATE 100 MG TABLET PO SCH (20:55)
[2018-01-19 23:00] VITALS: BP 125/72
[2018-01-20 04:00] LABS: CALCIUM 8.3 mg/dL (8.5-10.1); CREATININE 0.7 mg/dL (0.7-1.3); GFR 110.9; POTASSIUM 3.7 mmol/L (3.5-5.1)
[2018-01-20 04:11] LABS: VANC TR 18.2 mcg/mL (10.0-20.0)
[2018-01-20] MEDS: VANCOMYCIN 1.25 GM in IV NORMAL SALINE 250ML 250 ML IV SCH ×2 (04:40→16:05)
[2018-01-20 06:14] VITALS: BP 141/73
[2018-01-20] MEDS: ASPIRIN 81 MG TAB.CHEW PO SCH (08:30)
[2018-01-20] MEDS: MEMANTINE 10 MG TABLET. PO SCH (08:30)
[2018-01-20] MEDS: CITALOPRAM 20 MG TABLET. PO SCH (08:30)
[2018-01-20] MEDS: LISINOPRIL 20 MG TABLET PO SCH (08:31)
[2018-01-20] MEDS: FUROSEMIDE 20 MG/2 ML VIAL IVP SCH ×2 (08:31→14:20)
[2018-01-20] MEDS: LACTOBACILLUS RHAMNOSUS GG 1 CAPSULE. PO SCH (08:31)
[2018-01-20] MEDS: DOXYCYCLINE HYCLATE 100 MG TABLET PO SCH (08:31)
[2018-01-20] MEDS: POTASSIUM CHLORIDE 8 MEQ TABLET.ER. PO SCH (08:31)
[2018-01-20] MEDS: MULTIVITAMIN with MINERAL TABLET. PO SCH (08:33)
[2018-01-20] MEDS: VANCOMYCIN PER PHARMACY MC PRN (10:16)
[2018-01-20 11:13] VITALS: BP 147/76
[2018-01-20 14:17] VITALS: BP 126/74
--- NOTE | 2018-01-20 20:00 | DS ---
DATE OF DISCHARGE: 01/20/2018 HOSPITAL COURSE: The patient has cellulitis to the right foot. He is unresponsive to oral antibiotics that he had been on. His sedimentation rate was over 110. The patient made fairly good progress on the short stay of IV antibiotic therapy that he was on. He was also placed on some Lasix. The patient will continue with IV antibiotic therapy as an outpatient as well as continuing on Lasix. The patient will be discharged to a nursing facility so he can continue on IV antibiotic therapy as well as IV Lasix. The patient made good progress. He has severe Alzheimer type. The family agreed. IMPRESSION: Therefore, cellulitis to the right foot, unresponsive to oral antibiotics as an outpatient, acute on chronic diastolic heart failure, severe protein malnutrition, dementia, Alzheimer type, anemia of chronic disease. PLAN: The patient will be discharged to the nursing facility in [place] for IV Lasix, and antibiotic therapy and continue to monitor the patient as an outpatient. VENICE JONES MD DR: DAISY/ralph JOB#: [id number] / [id number]
== END 2018-01-20 17:26 | DRG 602 ==
LOC: 1 SOUTH 13:50
PROVIDERS: ADMIT Family Medicine; ATTEND Family Medicine
PROC: 02HV33Z Insertion of Infusion Device into Superior Vena Cava, Percutaneous Approach (ICD-10-PCS; principal; 2018-01-18)
PROC: B548ZZA Ultrasonography of Superior Vena Cava, Guidance (ICD-10-PCS; 2018-01-18)
DX: L03.115 Cellulitis of right lower limb (principal); E43 Unspecified severe protein-calorie malnutrition; I50.33 Acute on chronic diastolic (congestive) heart failure; F02.80 Dementia in other diseases classified elsewhere, unspecified severity, without behavioral disturbance, psychotic disturbance, mood disturbance, and anxiety; G30.9 Alzheimer's disease, unspecified; I11.0 Hypertensive heart disease with heart failure; E78.00 Pure hypercholesterolemia, unspecified; F32.9 Major depressive disorder, single episode, unspecified; Z96.652 Presence of left artificial knee joint; E11.9 Type 2 diabetes mellitus without complications; D63.8 Anemia in other chronic diseases classified elsewhere; Z95.2 Presence of prosthetic heart valve; Z82.49 Family history of ischemic heart disease and other diseases of the circulatory system; Z80.9 Family history of malignant neoplasm, unspecified; Z88.8 Allergy status to other drugs, medicaments and biological substances; Z79.82 Long term (current) use of aspirin; Z79.899 Other long term (current) drug therapy
CPT/HCPCS: 36415; 36569; 71045; 80048; 80053; 80202; 83605; 83880; 85025; 85651; 87040; J1650; J3370; J7040; J7050

== ENCOUNTER 2018-03-04 21:03 | Emergency (ER) | payer OTHER ==
[~2018-03-04] VITALS: Ht 172.7 cm; Wt 82.0 kg
[~2018-03-04 21:03] MED LIST changes: +DOXY100C14 PO; +KLOR CON PO
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
[2018-03-04] MEDS: IV RINGERS SOLUTION,LACTATED 1,000 ML IV SCH (22:18)
[2018-03-04 22:25] LABS: BASO % 0 % (0-3); EOS # 0.1 x10^3/uL (0.0-0.7); EOS % 1 % (0-3); HEMATOCRIT 36.2 % (39.0-53.0); LYMPH # 1.2 x10^3/uL (1.0-4.8); LYMPH % 14 % (24-48); MEAN CORPUSCULAR HEMOGLOBIN 30 pg (25-35); MEAN CORPUSCULAR HGB CONC 33 g/dL (31-37); MEAN CORPUSCULAR VOLUME 90 fL (79-100); MONO # 0.9 x10^3/uL (0.0-1.1); MONO % 11 % (0-9); NEUT # 6.3 x10^3uL (1.8-7.7); NEUT % 74 % (31-73); PLATELET COUNT 250 x10^3/uL (140-400); RED BLOOD COUNT 4.01 x10^6/uL (4.30-5.70); RED CELL DISTRIBUTION WIDTH 15.5 % (11.5-14.5); WHITE BLOOD COUNT 8.6 x10^3/uL (4.0-11.0)
[2018-03-04 22:26] LABS: AMPHETAMINE/METHAMPHETAMINE NEG (NEG); BARBITURATES NEG (NEG); BENZODIAZEPINES NEG (NEG); CANNABINOIDS NEG (NEG); COCAINE NEG (NEG); METHADONE NEG (NEG); OPIATES NEG (NEG); PHENCYCLIDINE NEG (NEG)
[2018-03-04 22:48] LABS: BILIRUBIN,URINE NEG (NEG); CLARITY,URINE TURBID; COLOR,URINE RED
[2018-03-04 22:49] LABS: BACTERIA,URINE 0 /HPF (0-FEW); RBC,URINE TNTC /HPF (0-2); WBC,URINE 0 /HPF (0-4)
[2018-03-04 22:57] LABS: CALCIUM 9.2 mg/dL (8.5-10.1); CREATININE 1.1 mg/dL (0.7-1.3); GFR 65.8; POTASSIUM 3.4 mmol/L (3.5-5.1)
--- NOTE | 2018-03-04 23:42 | RAD ---
CT scan of the head without contrast 03/04/2018 Clinical History: Fall with head trauma. Technique: Unenhanced, contiguous, 5 mm axial sections were obtained through the head. One or more of the following individualized dose reduction techniques were utilized for this study: 1. Automated exposure control. 2. Adjustment of the mA and/or kV according to patient size. 3. Use of iterative reconstruction technique. Findings: Comparison study is dated 07/31/2017. Images from the study are degraded by patient motion. There is generalized parenchymal atrophy. Areas of decreased attenuation are seen within the periventricular and subcortical white matter of both cerebral hemispheres consistent with areas of small vessel ischemic disease. Bilateral acute on chronic subdural hematomas are seen surrounding both cerebral hemispheres. These measure 1 cm in greatest transverse diameter bilaterally. There is mass effect upon both cerebral hemispheres without evidence of midline shift. They are new since the previous examination. No acute parenchymal abnormality is seen. No skull fracture is noted. 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 There is mass effect upon both cerebral hemispheres without evidence of midline shift. CT scan of the cervical spine without contrast 03/04/2018 Clinical history: Fall with neck injury. Technique: Unenhanced, contiguous, 0.625 mm axial sections were obtained through the cervical spine. Axial, coronal and sagittal reconstructed images were obtained. One or more of the following individualized dose reduction techniques were utilized for this study: 1. Automated exposure control. 2. Adjustment of the mA and/or kV according to patient size. 3. Use of iterative reconstruction technique. Findings: Images from the study are degraded by patient motion. Sagittal and coronal reconstructed images demonstrate mild straightening of the normal cervical lordosis. Degenerative changes consisting of disc space narrowing, vertebral endplate sclerosis and minimal to mild anterior and posterior vertebral body osteophyte formation are seen involving the mid and lower cervical disc spaces. No fracture or subluxation cervical vertebrae is seen. Degenerative changes are seen involving the uncovertebral and facet joints throughout the cervical disc spaces. Impression: No fracture or subluxation of the cervical vertebra is identified. These results were discussed with Dr. Stephenson at 2337 hours. Electronically signed by: Lauro Kyle MD (03/04/2018 11:39 PM) [facility]
[2018-03-04 23:43] LABS: SEDIMENTATION RATE 79 (0-15)
[2018-03-05] MEDS ORDERED: LIDOCAINE 2% SYRINGE 100 MG/5 ML DISP.SYRIN. ONE (00:10)
[2018-03-05] MEDS ORDERED: ETOMIDATE 40 MG/20 ML VIAL. IV ONE ×2 (00:10→04:00)
[2018-03-05] MEDS ORDERED: SUCCINYLCHOLINE 200 MG/10 ML VIAL. ONE (00:11)
[2018-03-05] MEDS ORDERED: MIDAZOLAM HCL PF 5 MG/5 ML VIAL. ONE (00:16)
[2018-03-05] MEDS ORDERED: PROPOFOL 100 ML IV ONE (00:17)
[2018-03-05 02:25] LABS: BGAS PH 7.49 (7.35-7.46)
[2018-03-05 03:33] VITALS: BP 100/59
[2018-03-05] MEDS: IV RINGERS SOLUTION,LACTATED 1,000 ML IV SCH (03:50)
[2018-03-05] MEDS ORDERED: LIDOCAINE 2% SYRINGE 100 MG/5 ML DISP.SYRIN. IV ONE (04:00)
[2018-03-05] MEDS ORDERED: SUCCINYLCHOLINE 200 MG/10 ML VIAL. IV ONE (04:00)
[2018-03-05] MEDS ORDERED: MIDAZOLAM HCL PF 5 MG/5 ML VIAL. IV ONE (04:00)
--- NOTE | 2018-03-05 05:14 | RAD ---
EXAM: 1. Pelvis one view. 2. Right hip 2 views. 3. Right femur 2 views. 4. Right tibia/fibula 2 views. HISTORY: Fall. COMPARISON: None. FINDINGS: No fractures are identified in the pelvis. A bladder catheter is in place. There are moderate degenerative changes of the lower lumbar spine. Stool throughout the colon is consistent with constipation. No fractures are identified at the right hip or throughout the right femur. There is mildly decreased femoral head/neck offset anterolaterally, suggesting femoroacetabular impingement. The joint spaces and alignment of the left hip are maintained. Atherosclerotic calcifications are noted. No fractures are identified within the right tibia/fibula. The joint spaces and alignment of the right knee and ankle are grossly maintained. There are tiny osteophytes along the patella and medial compartment. IMPRESSION: 1. No fracture. Electronically signed by: Jillian Lucas MD (03/05/2018 5:11 AM) [facility]
--- NOTE | 2018-03-05 05:16 | RAD ---
EXAM: CHEST 1 VIEW. HISTORY: Fall, intubated. COMPARISON: January 18, 2018. FINDINGS: A frontal view of the chest is obtained. An endotracheal tube has its tip 5.5 cm above the carol. A nasogastric tube has its tip in the stomach. There are changes of aortic valve replacement. A left subclavian central venous catheter has its tip in the superior vena cava. There is a small to moderate left pleural effusion with left basilar atelectasis. There is no pneumothorax. The heart is not enlarged. IMPRESSION: 1. Small to moderate left pleural effusion with left basilar atelectasis. Electronically signed by: Jillian Lucas MD (03/05/2018 5:12 AM) [id number]
== END 2018-03-05 04:27 | disposition short-term general hospital (02) ==
LOC: ER 21:03
DX: R41.82 Altered mental status, unspecified (principal); S06.5X9A Traumatic subdural hemorrhage with loss of consciousness of unspecified duration, initial encounter; S00.11XA Contusion of right eyelid and periocular area, initial encounter; D64.9 Anemia, unspecified; R31.9 Hematuria, unspecified; N40.0 Benign prostatic hyperplasia without lower urinary tract symptoms; R70.0 Elevated erythrocyte sedimentation rate; I11.0 Hypertensive heart disease with heart failure; I50.9 Heart failure, unspecified; I25.10 Atherosclerotic heart disease of native coronary artery without angina pectoris; E78.00 Pure hypercholesterolemia, unspecified; Z86.73 Personal history of transient ischemic attack (TIA), and cerebral infarction without residual deficits; Z87.440 Personal history of urinary (tract) infections; Z90.49 Acquired absence of other specified parts of digestive tract; Z88.1 Allergy status to other antibiotic agents; Z88.8 Allergy status to other drugs, medicaments and biological substances; W19.XXXA Unspecified fall, initial encounter; Y93.89 Activity, other specified; Y92.89 Other specified places as the place of occurrence of the external cause; Y99.8 Other external cause status
CPT/HCPCS: 31500; 36415; 36556; 43752; 51702; 70450; 72125; 72170; 73502; 73552; 73590; 80048; 80307; 81001; 82140; 82553; 82803; 83605; 83735; 83880; 84484; 85025; 85610; 85651; 85730; 87040; 96361; 96374; 99291; 99292; J7120; G0479